=== PATIENT | female | born 1980 | race American Indian/Alaskan Native ===

== ENCOUNTER 2021-06-11 08:50 | Inpatient (IN) | payer OTHER ==
[2021-06-11] MEDS ORDERED: ePHEDrine SULFATE 50 MG/1 ML INJ IV PRN (12:25)
[2021-06-11] MEDS ORDERED: CARBOPROST TROMETHAMINE 250 MCG/1 ML INJ IM PRN (12:25)
[2021-06-11] MEDS ORDERED: DINOPROSTONE 10 MG VAG SUPP VG ONE (12:25)
[2021-06-11] MEDS ORDERED: LOPERAMIDE 2 MG CAP PO PRN (12:25)
[2021-06-11] MEDS ORDERED: OXYTOCIN 10 UNIT/1 ML INJ IM PRN (12:25)
[2021-06-11] MEDS ORDERED: METHYLERGONOVINE MALEATE 0.2 MG/ML VIAL IM PRN (12:25)
[2021-06-11] MEDS ORDERED: miSOPROStol 200 MCG TAB PR PRN (12:25)
[2021-06-11] MEDS ORDERED: BUTORPHANOL 2 MG/1 ML INJ IV PRN ×2 (12:25)
[2021-06-11] MEDS ORDERED: fentaNYL 100 MCG/2 ML INJ IV PRN (12:25)
[2021-06-11] MEDS ORDERED: TERBUTALINE 1 MG/1 ML INJ SUB-Q PRN (12:25)
[2021-06-11] MEDS ORDERED: ACETAMINOPHEN 325 MG TAB PO PRN (12:25)
[2021-06-11] MEDS ORDERED: LIDOCAINE (2%) 20 MG/1 ML VIAL 20 ML MDV INFILTRATI ONE (12:25)
[2021-06-11] MEDS ORDERED: MINERAL OIL 30 ML ORAL LIQD PO PRN (12:25)
[2021-06-11] MEDS ORDERED: LACTATED RINGERS 1,000 ML IV SCH (12:30)
--- NOTE | 2021-06-11 12:39 | History and Physical Report ---
History of Present Illness Date of examination: 06/11/21 Date of admission: 06/11/21 08:50 Chief complaint: "I was sent her for an induction" History of present illness: 41 y/o presented to [facility] L&D unit @ 38.3 wks for an IOL r/t AMA and hx of IUFD @ 38-39 wks. Pt denied LOF or VB and admitted to active . She initiated her pnc @ [facility] location at 23.2 wks. Pt was co managed by [facility] for AMA and hx of IUFD. She has a med hx of ss trait, HGSIL with pos HPV. Surgical hx unremarkable. Family hx of DM, HTN, cardiac cond, stroke, and cancer. Pt states FOB is neg for ss trait. Pt was admitted to L&D for a cervidil IOL. 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 Family/Genetic History: diabetes, heart disease, hypertension, stroke, cancer, sickle cell/trait Social history: single, full code - Obstetrical History Expected Date of Delivery: 06/22/21 Actual Gestation: 38 Week(s) 3 Day(s) : 4 Para: 2 Hx # Term Pregnancies: 3 Number of Pregnancies: 0 Spontaneous Abortions: 0 Induced : 0 Number of Living Children: 2 Medications and Allergies Allergies Allergy/AdvReac Type Severity Reaction Status Date / Time No Known Allergies Allergy Unverified 06/11/21 09:44 Active Meds: Active Medications Acetaminophen (Acetaminophen 325 Mg Tab) 650 mg PO Q4H PRN PRN Reason: Pain, Mild (1-3) Butorphanol Tartrate (Butorphanol 2 Mg/1 Ml Inj) 1 mg IV Q2H PRN PRN Reason: Pain, Moderate(4-6) LABOR PAIN Butorphanol Tartrate (Butorphanol 2 Mg/1 Ml Inj) 2 mg IV Q2H PRN PRN Reason: Pain , Severe (7-10) Carboprost Tromethamine (Carboprost Tromethamine 250 Mcg/1 Ml Inj) 250 mcg IM ONCE PRN PRN Reason: Uterine Bleeding Dinoprostone (Dinoprostone 10 Mg Vag Supp) 10 mg VG ONCE ONE Stop: 06/11/21 12:26 Ephedrine Sulfate (Ephedrine Sulfate 50 Mg/1 Ml Inj) 10 mg IV Q2M PRN PRN Reason: Hypotension Fentanyl (Fentanyl 100 Mcg/2 Ml Inj) 100 mcg IV Q2H PRN PRN Reason: Pain,Severe (7-10) LABOR PAIN Oxytocin/Sodium Chloride (Pitocin/Ns 30 Unit/500ml) 30 units in 500 mls @ 2 mls/hr IV TITR BURKE; Protocol Lactated Ringer's (Lactated Ringers) 1,000 mls @ 125 mls/hr IV DIRECT BURKE Oxytocin/Sodium Chloride (Pitocin/Ns 30 Unit/500ml) 30 units in 500 mls @ 40 mls/hr IV TITR BURKE; Protocol Lidocaine (Lidocaine (2%) 20 Mg/1 Ml Vial 20 Ml Mdv) 20 ml INFILTRATI ONCE ONE Stop: 06/11/21 12:26 Loperamide HCl (Loperamide 2 Mg Cap) 2 mg PO ONCE PRN PRN Reason: give with Hemabate Methylergonovine Maleate (Methylergonovine Maleate 0.2 Mg/Ml Vial) 0.2 mg IM ONCE PRN PRN Reason: Uterine Bleeding Mineral Oil (Mineral Oil 30 Ml Oral Liqd) 30 ml PO QHS PRN PRN Reason: Constipation Misoprostol (Misoprostol 200 Mcg Tab) 800 mcg WV ONCE PRN PRN Reason: Uterine Bleeding Oxytocin (Oxytocin 10 Unit/1 Ml Inj) 10 unit IM ONCE PRN PRN Reason: Uterine Bleeding Terbutaline Sulfate (Terbutaline 1 Mg/1 Ml Inj) 0.25 mg SUB-Q ONCE PRN PRN Reason: Hyperstimulation/Hypertonicity Review of Systems All systems: negative Eyes: deferred Ears, nose, mouth and throat: deferred Breasts: normal - Vital Signs Vital signs: Vital Signs Pulse Ox 100 06/11/21 09:20 Temp Pulse Resp BP Pulse Ox 98.0 F 78 19 116/70 98 06/11/21 09:35 06/11/21 12:28 06/11/21 09:35 06/11/21 09:44 06/11/21 12:28 - Physical Exam Breasts: Positive: normal Abdomen: Positive: normal appearance, soft, normal bowel sounds Genitourinary (Female): Positive: normal external genitalia, normal perenium Vulva: both: normal Vagina: Positive: normal moisture Uterus: Positive: enlarged, normal contour, other (gravid) Adnexa: both: normal Anus/Rectum: Positive: normal perianal skin Extremities: Positive: normal - Obstetrical FHR: auscultation normal, category 1 Uterine Contraction Monitor Mode: External Cervical Dilatation: 0 Cervical Effacement Percentage: 0 station: -4 Uterine Contraction Pattern: Absent Uterine Tone Measurement Phase: Resting Results All other labs normal. Assessment and Plan A: IUP@ 38.3 wks Hx of IUFD @ 38-39 wks SS trait AMA HGSIL with pos HPV Neg GBS p: Admit to L&D for a cervidil IOL Continuos monitoring Pain med/Epidural prn Anticipate Colpo pp - Patient Problems (1) Supervision of normal IUP (intrauterine ) in multigravida Current Visit: Yes Status: Acute (2) Sickle cell trait Current Visit: Yes Status: Acute
[2021-06-11 12:42] LABS: Hemoglobin 11.4 gm/dl (10.1-14.3); Mean Corpuscular HGB Conc 35 % (30-34); Mean Corpuscular Volume 86 fl (79-97); Platelet Count 167 K/mm3 (140-440); Red Blood Count 3.85 M/mm3 (3.65-5.03); Red Cell Distribution Width 14.2 % (13.2-15.2)
[2021-06-11] MEDS ORDERED: OXYTOCIN DRIP 30 UNITS/500 ML BAG IV SCH ×2 (13:00)
[2021-06-12] MEDS ORDERED: LIDOCAINE (2%) 20 MG/1 ML VIAL 20 ML MDV INFILTRATI ONE (02:33)
[2021-06-12] MEDS ORDERED: diphenhydrAMINE 25 MG CAP PO PRN (02:52)
[2021-06-12] MEDS ORDERED: oxyCODONE /ACETAMINOPHEN 5-325MG TAB PO PRN (02:52)
[2021-06-12] MEDS ORDERED: WITCH HAZEL/ GLYCERIN PAD TP PRN (02:52)
[2021-06-12] MEDS ORDERED: PROMETHAZINE 25 MG RECT SUPP PR PRN (02:52)
[2021-06-12] MEDS ORDERED: LANOLIN/ZINC/DIMETHICONE (LANSINOH) 7 GM TP PRN (02:52)
[2021-06-12] MEDS ORDERED: ONDANSETRON 4 MG/2 ML INJ IV PRN (02:52)
[2021-06-12] MEDS ORDERED: ACETAMINOPHEN 325 MG TAB PO PRN (02:52)
[2021-06-12] MEDS ORDERED: PROMETHAZINE 25 MG TAB PO PRN (02:52)
[2021-06-12] MEDS ORDERED: MAGNESIUM HYDROXIDE (MOM) ORAL LIQD UDC PO PRN (02:52)
--- NOTE | 2021-06-12 02:59 | Procedure Note ---
Date of procedure: 06/12/21 Pre-op diagnosis: 39 wk iup, induction of labor Post-op diagnosis: same Procedure: This is Dr. Child dictating delivery note on patient. Preoperative diagnosis term induction of labor postop diagnosis same plus procedure was a normal spontaneous vaginal delivery repair first-degree tear with 2-0 Vicryl, rectal mucosa was intact. Findings liveborn female weight 6 pounds 6 ounces Apgars 8 and 9. Estimated blood loss 200 cc complications none. Patient tolerated procedure without problems. The placenta came out intact. Anesthesia: none Surgeon: HOWIE CHILD Estimated blood loss: other (200) Pathology: none Specimen disposition: discarded Condition: stable Disposition: floor
[2021-06-12] MEDS: IBUPROFEN 600 MG TAB PO SCH ×3 (03:27→18:01)
[2021-06-12 21:19] LABS: Hematocrit 27.2 % (30.3-42.9); Hemoglobin 9.4 gm/dl (10.1-14.3)
[2021-06-13] MEDS: IBUPROFEN 600 MG TAB PO SCH ×3 (00:09→12:14)
[2021-06-13] MEDS ORDERED: FERROUS SULFATE 325 MG TAB PO SCH (10:00)
--- NOTE | 2021-06-13 10:39 | Progress Note ---
Assessment and Plan A: S/P P: D/C home per pt's request - Patient Problems (1) Supervision of normal IUP (intrauterine ) in multigravida Current Visit: Yes Status: Acute (2) Sickle cell trait Current Visit: Yes Status: Acute Subjective - Subjective Date of service: 06/13/21 Principal diagnosis: s/p Interval history: 41 y/o presented to [facility] L&D unit @ 38.3 wks for an IOL r/t AMA and hx of IUFD @ 38-39 wks. Pt denied LOF or VB and admitted to active FM. She initiated her pnc @ [facility] location at 23.2 wks. Pt was co managed by [facility] for AMA and hx of IUFD. She has a med hx of ss trait, HGSIL with pos HPV. Surgical hx unremarkable. Family hx of DM, HTN, cardiac cond, stroke, and cancer. Pt states FOB is neg for ss trait. Pt was admitted to L&D for a cervidil IOL. Patient reports: appetite normal, voiding normally, pain well controlled, ambulating normally [place]: doing well, bottle feeding Objective - Vital Signs Latest vital signs: Vital Signs Temp Pulse Resp BP Pulse Ox Pulse Ox 06/13/21 08:20 100 06/13/21 08:02 98.2 F 68 20 123/73 96 06/13/21 05:44 18 06/13/21 01:09 18 06/13/21 00:54 98.0 F 82 20 105/56 98 06/13/21 00:09 18 06/12/21 19:52 100 06/12/21 17:26 18 06/12/21 16:00 98.2 F 76 20 123/66 98 06/12/21 12:06 97.5 F L 79 20 134/81 100 Intake and Output 06/12/21 06/13/21 06/13/21 22:59 06:59 14:59 Intake Total 480 360 240 Output Total 1100 Balance -620 360 240 Intake: Oral 480 360 240 Output: Urine 1100 Void 1100 Other: Total, Intake Amount 240 120 240 Total, Output Amount 500 # Voids Void 1 1 1 - Exam Breasts: Present: normal Abdomen: Present: normal appearance, soft, normal bowel sounds Vulva: both: normal Uterus: Present: normal, firm, fundal height below umbilicus Extremities: Present: normal - Labs Labs: Abnormal lab results 06/12/21 Range/Units 19:51 Hgb 9.4 L (10.1-14.3) gm/dl Hct 27.2 L (30.3-42.9) %
--- NOTE | 2021-06-13 10:45 | Discharge Summary ---
Providers - Providers Date of Admission: 06/11/21 08:50 Date of discharge: 06/13/21 Attending physician: HOWIE CHILD MD Primary care physician: HOWIE CHILD MD Hospitalization Reason for admission: induction of labor, other (ama, Hx of IUFD) Delivery: Episiotomy: none Laceration: 1st degree Incision: normal, intact Other procedures: none complications: other (asymptomatic anemia) Discharge diagnosis: IUP at term delivered baby: female Hospital course: Pt was admitted to [facility] for an IOL r/t AMA and hx of IUFD. She had a and was treated with fe pp for asymptomatic anemia. See H&P, delivery summary, and pp notes. Condition at discharge: Stable Disposition: 01 HOME / SELF CARE / HOMELESS - Discharge Diagnoses (1) Supervision of normal IUP (intrauterine ) in multigravida Status: Acute (2) Sickle cell trait Status: Acute Plan - Discharge Medications Prescriptions: Ferrous Sulfate [Feosol 325 MG tab] 325 mg PO BID #120 tablet Ibuprofen [Motrin 600 MG tab] 600 mg PO Q6HR PRN #30 tablet PRN Reason: Menstrual Cramps - Provider Discharge Summary Activity: routine, no sex for 6 weeks, no heavy lifting 4 weeks, no strenuous exercise Diet: other (High fe diet) Instructions: routine Additional instructions: [] Smoking cessation referral if applicable(refer to patient education folder for contact #) [] Refer to [facility]'s [facility] Booklet Call your doctor immediately for: * Fever > 100.5 * Heavy vaginal bleeding ( >1 pad per hour) * Severe persistent headache * Shortness of breath * Reddened, hot, painful area to leg or breast * Drainage or odor from incision. * Keep incision clean and dry at all times and follow doctor's instructions regarding bathing/showering - Follow up plan Follow up: HOWIE CHILD MD [Primary Care Provider] - 6 Weeks
[2021-06-13 16:26] VITALS: BP 115/64
== END 2021-06-13 16:22 | disposition home or self-care (01) | DRG 807 ==
LOC: LD 08:50 → OB 06-12 04:06
PROC: 10E0XZZ Delivery of Products of Conception, External Approach (ICD-10-PCS; principal; 2021-06-12)
PROC: 3E0P7VZ Introduction of Hormone into Female Reproductive, Via Natural or Artificial Opening (ICD-10-PCS; 2021-06-12)
PROC: 0HQ9XZZ Repair Perineum Skin, External Approach (ICD-10-PCS; 2021-06-12)
DX: O99.02 Anemia complicating childbirth (principal); Z37.0 Single live birth; O09.523 Supervision of elderly multigravida, third trimester; D57.3 Sickle-cell trait; R87.623 High grade squamous intraepithelial lesion on cytologic smear of vagina (HGSIL); O75.89 Other specified complications of labor and delivery; O70.0 First degree perineal laceration during delivery; Z20.822 Contact with and (suspected) exposure to COVID-19; Z3A.38 38 weeks gestation of pregnancy
CPT/HCPCS: 36415; 59200; 85014; 85018; 85027; 86850; 86870; 86900; 86901; 86920; 86922; 99211; G0378; G0463; J0595; J2590; U0003